=== PATIENT | male | born 1960 | race Caucasian/White ===

== ENCOUNTER 2021-07-03 13:05 | Emergency (ER) | payer MEDICARE, OTHER ==
[2021-07-03 14:09] LABS: HEMOGLOBIN 11.9 gm/dl (14.0-17.5); RED BLOOD COUNT 4.14 M/UL (4.20-5.50); WHITE BLOOD COUNT 10.4 K/UL (4.5-11.0)
[2021-07-03 14:38] LABS: BUN/CREATININE RATIO 16 (0-10)
[2021-07-03] MEDS ORDERED: PREDNISONE20 MG PO (15:16)
[2021-07-03] MEDS ORDERED: DOXYCYCLINE HY100 MG PO (15:16)
[2021-07-03] MEDS ORDERED: OMNICEF 300 MG300 MG PO (15:16)
[2021-07-03] MEDS ORDERED: XOPENEX1.25 MG/3 INH (15:16)
== END 2021-07-03 16:35 | disposition home or self-care (01) ==
LOC: ER1 13:05
PROVIDERS: Family Medicine
DX: J44.0 Chronic obstructive pulmonary disease with (acute) lower respiratory infection (principal); J18.9 Pneumonia, unspecified organism; J44.1 Chronic obstructive pulmonary disease with (acute) exacerbation; E10.65 Type 1 diabetes mellitus with hyperglycemia; G47.33 Obstructive sleep apnea (adult) (pediatric); Z99.81 Dependence on supplemental oxygen; Z20.822 Contact with and (suspected) exposure to COVID-19; Z87.891 Personal history of nicotine dependence; Z90.2 Acquired absence of lung [part of]
CPT/HCPCS: 0240U; 36600; 71045; 80053; 82550; 82553; 82803; 83605; 83880; 84439; 84443; 84484; 85025; 85610; 86140; 87040; 93005; 94664; 96374; 96375; 99285; J0696; J2930

== ENCOUNTER 2021-11-15 14:02 | Inpatient (IN) | payer MEDICARE, OTHER ==
[~2021-11-15] VITALS: Ht 185.4 cm; Wt 124.1 kg
[~2021-11-15 14:02] MED LIST: DOXYCYCLINE HY100 MG PO; OMNICEF 300 MG300 MG PO; PREDNISONE20 MG PO; XOPENEX1.25 MG/3 INH
[2021-11-15] MEDS ORDERED: PROVENTIL HFA6.7 GM INH (18:05)
[2021-11-15] MEDS ORDERED: GABAPENTIN800 MG PO (18:05)
[2021-11-15] MEDS ORDERED: BUPRENORPHINE-1 EACH SL (18:05)
[2021-11-15] MEDS ORDERED: ALBUTEROL2.5 MG/3 M INH (18:06)
[2021-11-15] MEDS ORDERED: LEVEMIR FL100 UNIT/1 SQ (18:07)
[2021-11-15 19:55] LABS: RED BLOOD COUNT 4.39 M/UL (4.20-5.50); WHITE BLOOD COUNT 27.7 K/UL (4.5-11.0)
[2021-11-15 20:28] LABS: BUN/CREATININE RATIO 46 (0-10)
[2021-11-15 22:26] LABS: BORDETELLA PARAPERTUSSIS Not Detected (Not Detectd); BORDETELLA PERTUSSIS Not Detected (Not Detectd); CHLAMYDIA PNEUMONIAE Not Detected (Not Detectd); CORONAVIRUS HKU1 Not Detected (Not Detectd); CORONAVIRUS NL63 Not Detected (Not Detectd); CORONAVIRUS OC43 Not Detected (Not Detectd); CORONOAVIRUS 229E Not Detected (Not Detectd); HUMAN METAPNEUMOVIRUS Not Detected (Not Detectd); HUMAN RHINOVIRUS/ENTEROVIRUS Not Detected (Not Detectd); INFLUENZA A Not Detected (Not Detectd); INFLUENZA B Not Detected (Not Detectd); MYCOPLASMA PNEUMONIAE Not Detected (Not Detectd); PARAINFLUENZA VIRUS 1 Not Detected (Not Detectd); PARAINFLUENZA VIRUS 2 Not Detected (Not Detectd); PARAINFLUENZA VIRUS 3 Not Detected (Not Detectd); PARAINFLUENZA VIRUS 4 Not Detected (Not Detectd); RESPIRATORY SYNCYTIAL VIRUS Not Detected (Not Detectd)
[2021-11-15 23:37] LABS: SARS-CoV-2 NOT DETECTED (Not Detectd)
[2021-11-16 08:51] LABS: HEMOGLOBIN 13.4 gm/dl (14.0-17.5); RED BLOOD COUNT 4.51 M/UL (4.20-5.50); WHITE BLOOD COUNT 27.5 K/UL (4.5-11.0)
[2021-11-16 09:50] LABS: BUN/CREATININE RATIO 33 (0-10)
[2021-11-17 04:39] LABS: HEMOGLOBIN 13.4 gm/dl (14.0-17.5); RED BLOOD COUNT 4.58 M/UL (4.20-5.50); WHITE BLOOD COUNT 25.5 K/UL (4.5-11.0)
[2021-11-17 05:30] LABS: BUN/CREATININE RATIO 49 (0-10)
[2021-11-18 04:54] LABS: HEMOGLOBIN 13.6 gm/dl (14.0-17.5); RED BLOOD COUNT 4.56 M/UL (4.20-5.50); WHITE BLOOD COUNT 24.3 K/UL (4.5-11.0)
[2021-11-18 05:18] LABS: BUN/CREATININE RATIO 43 (0-10)
[2021-11-18 15:10] LABS: ORGANISM ID Not indicated. (.); SPECIMEN SOURCE Urine (.); STREPTOCOCCUS PNEUMONIAE AG Negative (Negative)
[2021-11-19 02:44] LABS: BUN/CREATININE RATIO 47 (0-10)
[2021-11-19 02:57] LABS: RED BLOOD COUNT 4.39 M/UL (4.20-5.50); WHITE BLOOD COUNT 20.2 K/UL (4.5-11.0)
[2021-11-20 02:58] LABS: HEMOGLOBIN 13.3 gm/dl (14.0-17.5); RED BLOOD COUNT 4.54 M/UL (4.20-5.50)
[2021-11-20 03:42] LABS: BUN/CREATININE RATIO 42 (0-10)
[2021-11-21 00:11] LABS: D001-IGE D PTERONYSSINUS 0.17 kU/L (Class 0/I); D002-IGE D FARINAE 0.13 kU/L (Class 0/I); E001-IGE CAT DANDER <0.10 kU/L (Class 0); E005-IGE DOG DANDER <0.10 kU/L (Class 0); G002-IGE BERMUDA GRASS <0.10 kU/L (Class 0); G006-IGE TIMOTHY GRASS <0.10 kU/L (Class 0); M001-IGE PENICILLIUM CHRYSOGEN <0.10 kU/L (Class 0); M002-IGE CLADOSPORIUM HERBARUM <0.10 kU/L (Class 0); M003-IGE ASPERGILLUS FUMIGATUS <0.10 kU/L (Class 0); M006-IGE ALTERNARIA ALTERNATA <0.10 kU/L (Class 0); T001-IGE MAPLE/BOX ELDER <0.10 kU/L (Class 0); T003-IGE COMMON SILVER BIRCH <0.10 kU/L (Class 0); T006-IGE CEDAR, MOUNTAIN <0.10 kU/L (Class 0); T007-IGE OAK, WHITE <0.10 kU/L (Class 0); T010-IGE WALNUT <0.10 kU/L (Class 0); T011-IGE MAPLE LEAF SYCAMORE <0.10 kU/L (Class 0); T014-IGE COTTONWOOD <0.10 kU/L (Class 0); T015-IGE ASH, WHITE <0.10 kU/L (Class 0); T070-IGE WHITE MULBERRY <0.10 kU/L (Class 0); W001-IGE RAGWEED, SHORT <0.10 kU/L (Class 0); W018-IGE SHEEP SORREL <0.10 kU/L (Class 0)
[2021-11-21 02:57] LABS: HEMOGLOBIN 12.8 gm/dl (14.0-17.5); RED BLOOD COUNT 4.32 M/UL (4.20-5.50); WHITE BLOOD COUNT 21.6 K/UL (4.5-11.0)
[2021-11-21 03:40] LABS: BUN/CREATININE RATIO 48 (0-10)
[2021-11-21] MEDS ORDERED: LASIX40 MG PO (10:53)
[2021-11-21] MEDS ORDERED: LEVOFLOXACIN750 MG PO (10:53)
[2021-11-21] MEDS ORDERED: ELIQUIS 5 MG TAB5 MG PO (10:53)
[2021-11-21] MEDS ORDERED: PREDNISONE20 MG PO (10:53)
[2021-11-21] MEDS ORDERED: LOPRESSOR 50 MG50 MG PO (10:53)
[2021-11-21] MEDS ORDERED: BACTROBAN OINT22 GM (10:53)
[2021-11-21] MEDS ORDERED: SYMBICORT 160-1 INHA INH (12:49)
== END 2021-11-21 13:34 | disposition home or self-care (01) | DRG 193 ==
LOC: PROG CARE 16:30
PROVIDERS: Internal Medicine; Internal Medicine Critical Care Medicine; ADMIT Internal Medicine
PROC: B24BZZZ Ultrasonography of Heart with Aorta (ICD-10-PCS; principal; 2021-11-16)
PROC: 5A09357 Assistance with Respiratory Ventilation, Less than 24 Consecutive Hours, Continuous Positive Airway Pressure (ICD-10-PCS; 2021-11-16)
PROC: 5A09357 Assistance with Respiratory Ventilation, Less than 24 Consecutive Hours, Continuous Positive Airway Pressure (ICD-10-PCS; 2021-11-16)
PROC: 5A09357 Assistance with Respiratory Ventilation, Less than 24 Consecutive Hours, Continuous Positive Airway Pressure (ICD-10-PCS; 2021-11-17)
PROC: 5A09357 Assistance with Respiratory Ventilation, Less than 24 Consecutive Hours, Continuous Positive Airway Pressure (ICD-10-PCS; 2021-11-17)
PROC: 5A09357 Assistance with Respiratory Ventilation, Less than 24 Consecutive Hours, Continuous Positive Airway Pressure (ICD-10-PCS; 2021-11-18)
PROC: 5A09357 Assistance with Respiratory Ventilation, Less than 24 Consecutive Hours, Continuous Positive Airway Pressure (ICD-10-PCS; 2021-11-20)
PROC: 5A09357 Assistance with Respiratory Ventilation, Less than 24 Consecutive Hours, Continuous Positive Airway Pressure (ICD-10-PCS; 2021-11-21)
DX: J18.9 Pneumonia, unspecified organism (principal); I50.33 Acute on chronic diastolic (congestive) heart failure; Z20.822 Contact with and (suspected) exposure to COVID-19; J96.21 Acute and chronic respiratory failure with hypoxia; J96.22 Acute and chronic respiratory failure with hypercapnia; J44.1 Chronic obstructive pulmonary disease with (acute) exacerbation; J44.0 Chronic obstructive pulmonary disease with (acute) lower respiratory infection; F11.20 Opioid dependence, uncomplicated; I42.9 Cardiomyopathy, unspecified; R04.2 Hemoptysis; E66.9 Obesity, unspecified; F41.9 Anxiety disorder, unspecified; G89.4 Chronic pain syndrome; I48.0 Paroxysmal atrial fibrillation; I08.0 Rheumatic disorders of both mitral and aortic valves; F17.210 Nicotine dependence, cigarettes, uncomplicated; G47.33 Obstructive sleep apnea (adult) (pediatric); F32.A Depression, unspecified; K21.9 Gastro-esophageal reflux disease without esophagitis; E11.40 Type 2 diabetes mellitus with diabetic neuropathy, unspecified; I11.0 Hypertensive heart disease with heart failure; Z85.118 Personal history of other malignant neoplasm of bronchus and lung; Z79.01 Long term (current) use of anticoagulants; Z79.4 Long term (current) use of insulin; Z90.2 Acquired absence of lung [part of]; Z98.890 Other specified postprocedural states; Z82.5 Family history of asthma and other chronic lower respiratory diseases; Z88.1 Allergy status to other antibiotic agents; Z68.35 Body mass index [BMI] 35.0-35.9, adult
CPT/HCPCS: ECHO; 36415; 36600; 71045; 71046; 80053; 80202; 82550; 82553; 82785; 82803; 82962; 83036; 83605; 83735; 83880; 84484; 85025; 85027; 85652; 86140; 87040; 87081; 87278; 87633; 87899; 93005; 93306; 94640; 94660; 94664; 94760; 97116-GP-CQ; 97161; 97165; 97530; 97530-GP-CQ; J1120; J1160; J1940; J2060; J2185; J2270; J2920; J2930; J3370; J7070; Q0177; Q9957

== ENCOUNTER 2021-12-27 21:53 | Inpatient (IN) | payer MEDICARE, OTHER ==
[~2021-12-27] VITALS: Ht 185.4 cm; Wt 123.8 kg
[~2021-12-27 21:53] MED LIST changes: +ALBUTEROL2.5 MG/3 M INH; +BACTROBAN OINT22 GM; +BUPRENORPHINE-1 EACH SL; +ELIQUIS 5 MG TAB5 MG PO; +GABAPENTIN800 MG PO; +LASIX40 MG PO; +LEVEMIR FL100 UNIT/1 SQ; +LEVOFLOXACIN750 MG PO; +LOPRESSOR 50 MG50 MG PO; +PROVENTIL HFA6.7 GM INH; +SYMBICORT 160-1 INHA INH
[2021-12-27 22:39] LABS: HEMOGLOBIN 10.5 gm/dl (14.0-17.5); RED BLOOD COUNT 3.59 M/UL (4.20-5.50); WHITE BLOOD COUNT 10.6 K/UL (4.5-11.0)
[2021-12-27 23:04] LABS: BUN/CREATININE RATIO 18 (0-10)
[2021-12-28] MEDS ORDERED: LIPITOR TAB 2020 MG PO (11:00)
[2021-12-28] MEDS ORDERED: SYMBICORT 16010.2 GM INH (11:00)
[2021-12-28] MEDS ORDERED: ELIQUIS5 MG PO (11:01)
[2021-12-28] MEDS ORDERED: METOPROLOL TART50 MG PO (11:01)
[2021-12-28 12:42] LABS: BORDETELLA PARAPERTUSSIS Not Detected (Not Detectd); BORDETELLA PERTUSSIS Not Detected (Not Detectd); CHLAMYDIA PNEUMONIAE Not Detected (Not Detectd); CORONAVIRUS HKU1 Not Detected (Not Detectd); CORONAVIRUS NL63 Not Detected (Not Detectd); CORONAVIRUS OC43 Not Detected (Not Detectd); CORONOAVIRUS 229E Not Detected (Not Detectd); HUMAN METAPNEUMOVIRUS Not Detected (Not Detectd); INFLUENZA A Not Detected (Not Detectd); INFLUENZA B Not Detected (Not Detectd); MYCOPLASMA PNEUMONIAE Not Detected (Not Detectd); PARAINFLUENZA VIRUS 1 Not Detected (Not Detectd); PARAINFLUENZA VIRUS 2 Not Detected (Not Detectd); PARAINFLUENZA VIRUS 3 Not Detected (Not Detectd); PARAINFLUENZA VIRUS 4 Not Detected (Not Detectd); RESPIRATORY SYNCYTIAL VIRUS Not Detected (Not Detectd)
[2021-12-28 13:44] LABS: HUMAN RHINOVIRUS/ENTEROVIRUS DETECTED (Not Detectd); SARS-CoV-2 NOT DETECTED (Not Detectd)
[2021-12-28 19:59] LABS: CANDIDA ALBICANS Not Detected (Negative); CANDIDA KRUSEI Not Detected (Negative); CANDIDA TROPICALIS Not Detected (Negative); ESCHERICHIA COLI Not Detected (Negative); HAEMOPHILUS INFLUENZAE Not Detected (Negative); KLEBSIELLA OXYTOCA Not Detected (Negative); KLEBSIELLA PNEUMONIAE Not Detected (Negative); KPC-CARBAPENEM-RESISTANCE GENE Not Detected (Negative); PROTEUS Not Detected (Negative); PSEUDOMONAS AERUGINOSA Not Detected (Negative); SERRATIA MARCESANS Not Detected (Negative); STAPHYLOCOCCUS AUREUS Not Detected (Negative); STREP AGALACTIAE (GROUP B) Not Detected (Negative); STREP PYOGENES (GROUP A) Not Detected (Negative); STREPTOCOCCUS Not Detected (Negative); vanA/B (VANCOMYCIN RESIST GENE Not Detected (Negative)
[2021-12-28 21:19] LABS: STAPHYLOCOCCUS DETECTED (Negative)
[2021-12-29 04:59] LABS: HEMOGLOBIN 10.1 gm/dl (14.0-17.5); RED BLOOD COUNT 3.49 M/UL (4.20-5.50)
[2021-12-29 05:04] LABS: WHITE BLOOD COUNT 13.3 K/UL (4.5-11.0)
[2021-12-29 05:23] LABS: BUN/CREATININE RATIO 24 (0-10)
[2021-12-30 05:59] LABS: HEMOGLOBIN 9.8 gm/dl (14.0-17.5); RED BLOOD COUNT 3.34 M/UL (4.20-5.50); WHITE BLOOD COUNT 26.2 K/UL (4.5-11.0)
[2021-12-30 06:44] LABS: BUN/CREATININE RATIO 37 (0-10)
[2021-12-31 04:38] LABS: HEMOGLOBIN 10.3 gm/dl (14.0-17.5); RED BLOOD COUNT 3.62 M/UL (4.20-5.50); WHITE BLOOD COUNT 21.5 K/UL (4.5-11.0)
[2021-12-31 05:00] LABS: BUN/CREATININE RATIO 40 (0-10)
[2022-01-01 05:20] LABS: HEMOGLOBIN 10.7 gm/dl (14.0-17.5); RED BLOOD COUNT 3.74 M/UL (4.20-5.50); WHITE BLOOD COUNT 17.7 K/UL (4.5-11.0)
[2022-01-01 06:18] LABS: BUN/CREATININE RATIO 38 (0-10)
[2022-01-02 01:58] LABS: HEMOGLOBIN 11.1 gm/dl (14.0-17.5); RED BLOOD COUNT 3.85 M/UL (4.20-5.50); WHITE BLOOD COUNT 19.3 K/UL (4.5-11.0)
[2022-01-02 02:17] LABS: BUN/CREATININE RATIO 32 (0-10)
[2022-01-03 02:40] LABS: HEMOGLOBIN 11.3 gm/dl (14.0-17.5); RED BLOOD COUNT 3.92 M/UL (4.20-5.50); WHITE BLOOD COUNT 19.2 K/UL (4.5-11.0)
[2022-01-03 02:58] LABS: BUN/CREATININE RATIO 30 (0-10)
[2022-01-03] MEDS ORDERED: BACTRIM DS TAB1 EACH PO (10:38)
== END 2022-01-03 17:35 | DRG 871 ==
LOC: ER1 21:53 → PROG CARE 12-28 04:22 → CDU 12-28 04:22 → CCU 12-28 04:22 → PROG CARE 12-28 07:40 → CCU 12-28 14:14 → PROG CARE 01-01 16:00
PROVIDERS: Internal Medicine; Internal Medicine Pulmonary Disease; Student in an Organized Health Care Education/Training Program; ADMIT Internal Medicine
PROC: 3E03329 Introduction of Other Anti-infective into Peripheral Vein, Percutaneous Approach (ICD-10-PCS; principal; 2021-12-28)
PROC: 3E043XZ Introduction of Vasopressor into Central Vein, Percutaneous Approach (ICD-10-PCS; 2021-12-28)
PROC: 5A09357 Assistance with Respiratory Ventilation, Less than 24 Consecutive Hours, Continuous Positive Airway Pressure (ICD-10-PCS; 2021-12-28)
PROC: 5A09357 Assistance with Respiratory Ventilation, Less than 24 Consecutive Hours, Continuous Positive Airway Pressure (ICD-10-PCS; 2021-12-29)
PROC: 5A09457 Assistance with Respiratory Ventilation, 24-96 Consecutive Hours, Continuous Positive Airway Pressure (ICD-10-PCS; 2021-12-29)
PROC: 5A09457 Assistance with Respiratory Ventilation, 24-96 Consecutive Hours, Continuous Positive Airway Pressure (ICD-10-PCS; 2021-12-31)
PROC: 5A09357 Assistance with Respiratory Ventilation, Less than 24 Consecutive Hours, Continuous Positive Airway Pressure (ICD-10-PCS; 2022-01-02)
DX: A41.9 Sepsis, unspecified organism (principal); I50.33 Acute on chronic diastolic (congestive) heart failure; J18.9 Pneumonia, unspecified organism; J96.21 Acute and chronic respiratory failure with hypoxia; J96.22 Acute and chronic respiratory failure with hypercapnia; J44.1 Chronic obstructive pulmonary disease with (acute) exacerbation; J44.0 Chronic obstructive pulmonary disease with (acute) lower respiratory infection; E87.1 Hypo-osmolality and hyponatremia; Z20.822 Contact with and (suspected) exposure to COVID-19; G47.33 Obstructive sleep apnea (adult) (pediatric); E66.01 Morbid (severe) obesity due to excess calories; F41.9 Anxiety disorder, unspecified; E11.40 Type 2 diabetes mellitus with diabetic neuropathy, unspecified; I11.0 Hypertensive heart disease with heart failure; Z88.8 Allergy status to other drugs, medicaments and biological substances; G89.4 Chronic pain syndrome; E11.65 Type 2 diabetes mellitus with hyperglycemia; I48.91 Unspecified atrial fibrillation; R65.20 Severe sepsis without septic shock; Z85.118 Personal history of other malignant neoplasm of bronchus and lung; Z90.2 Acquired absence of lung [part of]; Z79.01 Long term (current) use of anticoagulants; Z51.5 Encounter for palliative care; Z79.4 Long term (current) use of insulin; Z98.890 Other specified postprocedural states; Z88.1 Allergy status to other antibiotic agents; Z82.5 Family history of asthma and other chronic lower respiratory diseases; Z87.891 Personal history of nicotine dependence; Z68.36 Body mass index [BMI] 36.0-36.9, adult
CPT/HCPCS: 36415; 36600; 71045; 80048; 80053; 82550; 82553; 82803; 82962; 83036; 83605; 83735; 83880; 84484; 85025; 85027; 86140; 87040; 87070; 87077; 87150; 87186; 87205; 87633; 93005; 94640; 94660; 94664; 94760; 96361; 96374; 96375; 99285; J0696; J1940; J2270; J2543; J2920; J2930; J3370; J7050; J7070; Q9967

== ENCOUNTER 2022-01-09 18:19 | Emergency (ER) | payer MEDICARE, OTHER ==
[~2022-01-09 18:19] MED LIST changes: +BACTRIM DS TAB1 EACH PO; +ELIQUIS5 MG PO; +LIPITOR TAB 2020 MG PO; +METOPROLOL TART50 MG PO; +SYMBICORT 16010.2 GM INH
[2022-01-09 19:04] LABS: HEMOGLOBIN 12.3 gm/dl (14.0-17.5); RED BLOOD COUNT 4.24 M/UL (4.20-5.50); WHITE BLOOD COUNT 15.8 K/UL (4.5-11.0)
[2022-01-09 19:29] LABS: BUN/CREATININE RATIO 22 (0-10)
[2022-01-09] MEDS ORDERED: PERCOCET 10-321 EACH PO (21:35)
== END 2022-01-09 21:45 | disposition home or self-care (01) ==
LOC: ER1 18:19
PROVIDERS: Emergency Medicine
DX: I48.91 Unspecified atrial fibrillation (principal); Z20.822 Contact with and (suspected) exposure to COVID-19
CPT/HCPCS: 71045; 80053; 82272; 82550; 82553; 83735; 83880; 84484; 85025; 93005; 96374; 99285; U0002